=== PATIENT | male | born 1990 | race Caucasian/White ===

== ENCOUNTER → 2016-10-10 | Outpatient (CLI) | payer BC, OTHER ==
--- NOTE | 2016-10-10 09:53 | CT ---
CT Scan of the Urinary Tract (Abdomen and Pelvis Without Contrast) Indication: Left flank pain for 7 months. Technique: Multidetector helical CT imaging was performed from the kidneys to the urinary bladder wi thout contrast. Dose reduction techniques were utilized. Comparison: None. Findings: No intraabdominal mass, lymphadenopathy, free fluid, or mesenteric edema. The bowel pattern is normal. No constipation, diverticulosis, bowel wall thickening, or dilatation. T he appendix is normal. Kidneys are normal. No nephrolithiasis, ureteral calculi or hydroureteronephrosis. Urinary bladder is nearly completely empty. Prostate gland is normal in size. The noncontrast liver, spleen, pancreas, gallbladder, and adrenal glands are normal. The abdominal ao rta is normal in caliber. The lung bases are clear. No bone lesions. Impression: Normal. No explanation for left-sided flank pain. Attention: This CT examination is specifically designed to evaluate patients who are clinically susp ected of having acute obstructive uropathy. This examination does not use radiographic contrast, and as such, provides only a limited evaluation of the abdomen, pelvis and retroperitoneum. If there i s further clinical suspicion for pathological conditions other than obstructive uropathy, a complete CT evaluation of the abdomen and pelvis utilizing intravenous, oral, and rectal contrast should be co nsidered.
== END ==
LOC: FIMAGING 07:58
PROVIDERS: ATTEND Family Medicine
DX: R10.9 Unspecified abdominal pain (principal)

== ENCOUNTER → 2017-08-17 | Outpatient (CLI) | payer BC | LOC: FIMAGING 09:40 | PROVIDERS: ATTEND Family Medicine | DX: R07.9 Chest pain, unspecified (principal) ==